=== PATIENT | male | born 1945 | race Caucasian/White ===

== ENCOUNTER 2017-10-15 18:31 | Emergency (ER) | payer MEDICARE, BC ==
[~2017-10-15] VITALS: Ht 180.3 cm; Wt 84.3 kg
[~2017-10-15 18:31] MED LIST: ALLO100T PO; ALPH300T PO; ALPR.25 PO; BACT2CRE TOP; CLIN1CAP6 PO; FOSI40TA PO; MAGN400C2 PO; MONT10 PO; PARI1 PO; PROP1TAB67 PO; RHINSUS; ROSU5 PO; TORS20 PO; [UNRECOGNIZED DRUG - CODE] PO; [UNRECOGNIZED DRUG - CODE] PO
[2017-10-15 18:34] VITALS: BP 166/95; PULSE 88; RESP 16; TEMP 100; O2SAT 98
[2017-10-15 19:05] VITALS: BP 156/80; PULSE 82; RESP 18; O2SAT 96
[2017-10-15] MEDS ORDERED: FOSI10TA PO (19:13)
[2017-10-15] MEDS ORDERED: PROP120 PO (19:16)
[2017-10-15] MEDS ORDERED: TAMS5CAP PO (19:16)
[2017-10-15] MEDS ORDERED: ROSU5 PO (19:16)
[2017-10-15] MEDS ORDERED: ALPR.25 PO (19:16)
[2017-10-15] MEDS ORDERED: DEMA10TA PO (19:16)
[2017-10-15] MEDS ORDERED: ALLO100T PO (19:16)
[2017-10-15] MEDS ORDERED: PARI1 PO (19:16)
--- NOTE | 2017-10-15 19:18 | PD ---
HPI Chief Complaint: General Weakness Time Seen by Provider: 19:14 Travel History International Travel<30 days: No Contact w/Intl Traveler<30days: No Traveled to known affect area: No History of Present Illness HPI The patient is a 72-year-old male who has a history of pyelonephritis recently who complains of fever and weakness today. He denies any nausea or vomiting. He denies any cough, sore throat, ear pain or shortness of breath. He denies any chest pain. He does have some twinges on both kidneys today but he denies any pain there now. His pain now as a 0/10. He states he does not get dysuria , frequency or urgency with urinary tract infections. He does have a history of polycystic kidney disease. He states he has had his flu shot. The patient states he has stage IV renal insufficiency and once with stage V and he almost got dialysis. His creatinine was well over 3 in the past. PFSH Past Medical History Anxiety: Yes Diminished Hearing: No Hypertension: Yes Renal Failure: Yes Social History Alcohol Use: Yes Tobacco Use: No Allergies-Medications (Allergen,Severity, Reaction): Coded Allergies: Iodinated Contrast- Oral and IV Dye (Verified Allergy, Unknown, 10/15/17) ciprofloxacin (Verified Allergy, Unknown, 10/15/17) Reported Meds & Prescriptions Reported Meds & Active Scripts Active Reported Zemplar (Paricalcitol) 1 Mcg Cap 1 Mcg PO DAILY Crestor (Rosuvastatin Calcium) 5 Mg Tab 5 Mg PO DAILY Flomax (Tamsulosin HCl) 0.4 Mg Cap 0.4 Mg PO HS Allopurinol 100 Mg Tab 100 Mg PO DAILY Inderal LA 24 HR (Propranolol HCl) 120 Mg Cap 120 Mg PO DAILY Xanax (Alprazolam) 0.25 Mg Tab 0.25 Mg PO Q8H PRN Demadex (Torsemide) 10 Mg Tab 10 Mg PO DAILY Fosinopril (Fosinopril Sodium) 10 Mg Tab 10 Mg PO DAILY Review of Systems Except as stated in HPI: all other systems reviewed are Neg Physical Exam Narrative GENERAL: The patient is alert, oriented 3 in no apparent distress. His vital signs show temperature 100.0, one pressure 166/95 but the rest of his vital signs are normal. SKIN: Focused skin assessment warm/dry. HEAD: Atraumatic. Normocephalic. EYES: Pupils equal and round. No scleral icterus. No injection or drainage. ENT: No nasal bleeding or discharge. Mucous membranes pink and moist. NECK: Trachea midline. No JVD. CARDIOVASCULAR: Regular rate and rhythm. No murmur appreciated. RESPIRATORY: No accessory muscle use. Clear to auscultation. Breath sounds equal bilaterally. GASTROINTESTINAL: Abdomen soft, non-tender, nondistended. Hepatic and splenic margins not palpable. No guarding or rebound is present. MUSCULOSKELETAL: No obvious deformities. No clubbing. No cyanosis. No edema. NEUROLOGICAL: Awake and alert. No obvious cranial nerve deficits. Motor grossly within normal limits. Normal speech. PSYCHIATRIC: Appropriate mood and affect; insight and judgment normal. Data Data Last Documented VS Vital Signs Date Time Temp Pulse Resp B/P (MAP) Pulse Ox O2 Delivery O2 Flow Rate FiO2 10/15/17 19:05 82 18 156/80 (105) 96 Room Air 10/15/17 18:34 100.0 Orders Orders Complete Blood Count With Diff (10/15/17 19:18) Comprehensive Metabolic Panel (10/15/17 19:18) Urinalysis - C+S If Indicated (10/15/17 19:18) Sodium Chlor 0.9% 1000 Ml Inj (Ns 1000 M (10/15/17 19:30) Urine Culture (10/15/17 19:25) Labs Laboratory Tests Test 10/15/17 19:25 White Blood Count 6.4 TH/MM3 Red Blood Count 3.22 MIL/MM3 Hemoglobin 10.1 GM/DL Hematocrit 29.4 % Mean Corpuscular Volume 91.4 FL Mean Corpuscular Hemoglobin 31.6 PG Mean Corpuscular Hemoglobin Concent 34.5 % Red Cell Distribution Width 15.1 % Platelet Count 141 TH/MM3 Mean Platelet Volume 8.8 FL Neutrophils (%) (Auto) 76.1 % Lymphocytes (%) (Auto) 16.0 % Monocytes (%) (Auto) 4.9 % Eosinophils (%) (Auto) 2.1 % Basophils (%) (Auto) 0.9 % Neutrophils # (Auto) 4.9 TH/MM3 Lymphocytes # (Auto) 1.0 TH/MM3 Monocytes # (Auto) 0.3 TH/MM3 Eosinophils # (Auto) 0.1 TH/MM3 Basophils # (Auto) 0.1 TH/MM3 CBC Comment DIFF FINAL Differential Comment Urine Color YELLOW Urine Turbidity SLIGHT Urine pH 5.5 Urine Specific [place] 1.012 Urine Protein NEG mg/dL Urine Glucose (UA) NEG mg/dL Urine Ketones NEG mg/dL Urine Occult Blood SMALL Urine Nitrite NEG Urine Bilirubin NEG Urine Leukocyte Esterase SMALL Urine RBC 4-9 /hpf Urine WBC 9-14 /hpf Urine WBC Clumps FEW Urine Squamous Epithelial Cells 0-5 /hpf Urine Bacteria MOD /hpf Microscopic Urinalysis Comment CULTURE INDICATED Blood Urea Nitrogen 53 MG/DL Creatinine 2.80 MG/DL Random Glucose 102 MG/DL Total Protein 7.2 GM/DL Albumin 3.3 GM/DL Calcium Level 9.5 MG/DL Alkaline Phosphatase 63 U/L Aspartate Amino Transf (AST/SGOT) 18 U/L Alanine Aminotransferase (ALT/SGPT) 15 U/L Total Bilirubin 0.5 MG/DL Sodium Level 135 MEQ/L Potassium Level 3.9 MEQ/L Chloride Level 101 MEQ/L Carbon Dioxide Level 24.9 MEQ/L Anion Gap 9 MEQ/L Estimat Glomerular Filtration Rate 23 ML/MIN MDM Medical Decision Making Medical Screen Exam Complete: Yes Emergency Medical Condition: Yes Medical Record Reviewed: Yes Interpretation(s) The CBC shows a hemoglobin of 10.1 and hematocrit of 29.4 and platelets of 141, 000 but is otherwise unremarkable. The BUN is 53, creatinine 2.8, GFR of 23 with albumin 3.3 and sodium 135 but is otherwise normal on the complete metabolic profile. The urine shows small blood, small leukocyte esterase, 9-14 white cells with a few white cell clumping's and 4-9 red cells and moderate bacteria and culture is indicated. Differential Diagnosis Cystitis, pyelonephritis, viral syndrome, sepsis-unlikely, electrolyte disorder Narrative Course The patient appears to have pyelonephritis. He will be given Macrobid 100 mg twice daily for 10 days. He needs to call his customs inspector in [place] to see if his customs inspector was to modify the treatment. He should call him tomorrow morning. Diagnosis Primary Impression: Pyelonephritis Additional Impression: Renal insufficiency Additional Instructions: As we discussed, call your customs inspector tomorrow morning in [place] to see if he wants to change your treatment. You may have to go back to [place] if this problem does not resolve. It may be difficult for you to find a local customs inspector in a timely fashion down here. You will need to increase her liquid intake to establish a good urine flow through your kidneys. Med/Other Pt SpecificInfo: Prescription(s) given Scripts Nitrofurantoin Monohydrate Macrocrystals (Macrobid) 100 Mg Cap 100 MG PO BID for Infection for 10 Days, #20 CAP 0 Refills Prov: Pranav Lindo MD 10/15/17 Disposition: 01 DISCHARGE HOME Pranav Lindo MD Oct 15, 2017 19:18
[2017-10-15] MEDS ORDERED: SODIUM CHLOR 0.9% 1000 ML INJ 1,000 ML IV SCH (19:30)
[2017-10-15 19:48] LABS: AUTOMATED NEUTROPHIL # 4.9 TH/MM3 (1.8-7.7); BASOPHIL # 0.1 TH/MM3 (0-0.2); BASOPHIL % 0.9 % (0.0-2.0); BILIRUBIN, URINE NEG (NEG); BLOOD, URINE SMALL (NEG); EOSINOPHIL # 0.1 TH/MM3 (0-0.4); EOSINOPHIL % 2.1 % (0.0-4.0); GLUCOSE,URINE NEG (NEG); HEMATOCRIT 29.4 % (39.0-51.0); HEMOGLOBIN 10.1 GM/DL (13.0-17.0); KETONE, URINE NEG (NEG); MEAN CELL VOLUME 91.4 FL (80.0-100.0); MEAN CORPUSCULAR HEMOGLOBIN 31.6 PG (27.0-34.0); MEAN CORPUSCULAR HGB CONC 34.5 % (32.0-36.0); MEAN PLATELET VOLUME 8.8 FL (7.0-11.0); MONO % 4.9 % (0.0-8.0); MONOCYTE # 0.3 TH/MM3 (0-0.9); NEUT % 76.1 % (16.0-70.0); NITRITE,URINE NEG (NEG); PH, URINE 5.5 (5.0-8.5); PLATELET COUNT 141 TH/MM3 (150-450); RED BLOOD COUNT 3.22 MIL/MM3 (4.50-5.90); RED CELL DISTRIBUTION WIDTH 15.1 % (11.6-17.2); URINE LEUKOCYTE ESTERASE SMALL (NEG); WHITE BLOOD COUNT 6.4 TH/MM3 (4.0-11.0)
[2017-10-15 19:55] LABS: URINE COLOR YELLOW (YELLW/STRAW)
[2017-10-15 19:56] LABS: BACTERIA, URINE MOD /hpf; CHLORIDE 101 MEQ/L (98-107); SODIUM (NA) 135 MEQ/L (136-145); SQUAMOUS EPITHELIAL CELL URINE 0-5 /hpf (0-5); WHITE BLOOD CELL CLUMPS FEW
[2017-10-15 19:59] LABS: CALCIUM 9.5 MG/DL (8.5-10.1)
[2017-10-15 20:00] LABS: ALBUMIN 3.3 GM/DL (3.4-5.0); BICARBONATE 24.9 MEQ/L (21.0-32.0); BLOOD UREA NITROGEN 53 MG/DL (7-18); GLUCOSE,RANDOM 102 MG/DL (74-106)
[2017-10-15 20:02] LABS: ALT (GPT) 15 U/L (12-78)
[2017-10-15 20:03] LABS: AST (GOT) 18 U/L (15-37); GLOMERULAR FILTRATION RATE 23 ML/MIN (>89)
[2017-10-15 20:04] LABS: TOTAL BILIRUBIN ADULT 0.5 MG/DL (0.2-1.0); TOTAL PROTEIN 7.2 GM/DL (6.4-8.2)
[2017-10-15 20:05] LABS: ALKALINE PHOSPHATASE 63 U/L (45-117)
[2017-10-15] MEDS ORDERED: MACR100C2 PO (20:39)
[2017-10-15] MEDS ORDERED: NITROFURANTOIN MONOHYD MACROCR 100 MG CAP PO ONE (20:45)
[2017-10-15 21:01] VITALS: BP 147/70; TEMP 99.8
== END 2017-10-15 21:16 | disposition home or self-care (01) ==
LOC: PHED 18:31
DX: N12 Tubulo-interstitial nephritis, not specified as acute or chronic (principal); A48.8 Other specified bacterial diseases; N28.9 Disorder of kidney and ureter, unspecified; F41.9 Anxiety disorder, unspecified; I10 Essential (primary) hypertension; Z79.899 Other long term (current) drug therapy
CPT/HCPCS: 80053; 81001; 85025; 87077; 87086; 87186; 96360; 99284; J7030